=== PATIENT | male | born 1980 | race Two or more races ===

== ENCOUNTER → 2024-06-30 | Outpatient (CLI) | payer MEDICAID, SELFPAY ==
--- NOTE | 2024-06-30 15:00 | XR_ITS ---
Examination: Ultrasound soft tissue right groin TECHNIQUE: Sonographic soft tissue images right groin Exam date and time: June 30, 2024 1513 hours INDICATIONS: Right groin pain beginning 2 months ago, history right groin hernia repair. FINDINGS: Sonographic images right groin demonstrated no cystic or solid mass IMPRESSION: No cystic or solid mass, consider CT scan pelvis without contrast follow-up
== END | disposition home or self-care (01) ==
PROVIDERS: PCP Nurse Practitioner Family; Referring Provider Nurse Practitioner Family; Visit Provider Nurse Practitioner Family
DX: R10.31 Right lower quadrant pain (principal)
CPT/HCPCS: 76882

== ENCOUNTER 2024-10-30 06:45 | Day surgery (SDC) | payer MEDICAID, SELFPAY ==
[2024-10-29 08:58] VITALS: BMI 30.9
[2024-10-29 09:58] LABS: Basophils % (Auto) 1 % (0-2.5); Eosinophils # (Auto) 0.1 Thou/mm3 (0.0-0.5); Eosinophils % (Auto) 2 % (0-10); Hematocrit 41.6 % (41.0-53.0); Hemoglobin 14.5 g/dL (13.5-16.0); Immature Granulocytes % (Auto) 0 % (0-0); Immature Granulocytes Auto 0.01 Thou/mm3 (0.00-0.00); Lymphocytes # (Auto) 1.9 Thou/mm3 (1.0-4.8); Lymphocytes % (Auto) 38 % (10-50); Mean Corpuscular HGB Conc 34.9 g/dl (31.0-37.0); Mean Corpuscular Hemoglobin 30.5 pg (25.0-35.0); Mean Corpuscular Volume 87 fL (80-100); Monocytes # (Auto) 0.4 Thou/mm3 (0.0-0.8); Monocytes % (Auto) 7 % (0-12); Neutrophils # (Auto) 2.6 Thou/mm3 (1.8-7.7); Neutrophils % (Auto) 52 % (37-80); Nucleated Red Blood Cell % 0 /100 WBC (0); Platelet Count 235 Thou/mm3 (140-440); RDW Standard Deviation 40.7 fL (35.1-43.9); Red Blood Count 4.76 Miln/mm3 (4.50-5.90); White Blood Count 5.1 Thou/mm3 (3.8-10.6)
[2024-10-29 10:01] LABS: Anion Gap 8 (7-16); BUN/Creatinine Ratio 25 Ratio (12-20); Blood Urea Nitrogen 25 mg/dL (9-23); Carbon Dioxide 30.4 mMol/L (20.0-31.0); Chloride 105 mMol/L (98-107); Estimated Creatinine Clearance 112.6 mL/min (>60); Glucose 76 mg/dL (74-106); Osmolality,Calculated 288 (275-295); Potassium 4.3 mMol/L (3.4-5.1); Sodium 143 mMol/L (136-145); eGFR > 60 See Note
--- NOTE | 2024-10-29 14:06 | SUR.PREOP ---
Pt notified to come in tomorrow at 0700 for surgery.
[2024-10-30] VITALS (8 sets, daily range): BP systolic 105–130; BP diastolic 65–78; PULSE 52–69; RESP 12–20; TEMP 36.2–36.6; O2SAT 95–100; BMI 30.1
[2024-10-30] MEDS: RINGERS LACTATED 1000 ML 1,000 ML 20 ML IV (07:21)
--- NOTE | 2024-10-30 09:24 | PD.SUROPNT ---
Date of Procedure 10/30/24 Pre Op Diagnosis Incarcerated umbilical hernia Post Op Diagnosis Incarcerated umbilical hernia Procedure Primary repair of incarcerated umbilical hernia Findings An approximately 1 cm umbilical hernia defect with incarcerated omentum and preperitoneal fat Procedure Description Patient brought into the operating room in supine position. After administration of general endotracheal anesthesia, patient's abdomen prepped and draped in standard surgical manner. Local anesthesia was administered. 3 cm semicircular incision was made above the umbilicus and dissection was deepened into soft tissue. The umbilicus was detached from anterior abdominal fascia. The hernia sac was identified and circumferentially dissected out surrounding tissue. The sac was opened, the contents were incarcerated preperitoneal fat and omentum. The hernia sac along with incarcerated preperitoneal fat were excised and the omentum was reduced. The defect was primarily closed with interrupted sutures using 0 Prolene. Umbilicus was reattached into anterior abdominal fascia. Soft tissue reapproximated with interrupted sutures using 2-0 Vicryl and the incision was closed with 4-0 Monocryl in subcuticular fashion. Dermabond applied. Patient tolerated the procedure well. He was extubated, breathing spontaneously and without difficulty and was transferred to postanesthesia care in stable condition. Instruments, needles and sponge counts were reported to be correct x 2. Anesthesia GETA and local Pathology / specimen Other (Hernia sac and contents) Estimated Blood Loss 2 Condition Stable Disposition PACU Surgeon Felicia Siegel MD Surgical Staff Operation Date: 10/30/24 09:00 Case Staff DEALER ACCOUNT MANAGER: Deisi Graham RN First Assistant: Kyung Velásquez
--- NOTE | 2024-10-30 09:29 | SUR.PHASEI ---
pt received from OR in recovery bay 4. pt obtunded, breathing unlabored on oxymask 8l, oral airway in place. v/s stable. pt dressing to abd dermabond x1 cdi. report received from Remy SYED and Reanna BROWN.
--- NOTE | 2024-10-30 10:27 | SUR.PHASEII ---
pt able to tolerate oral fluids without difficulty swallowing or nausea/vomiting.
--- NOTE | 2024-10-30 11:01 | SUR.PHASEI ---
pt meets criteria for discharge. pt dressed sitting in wheelchair awaiting ride (mother) to arrive then will be d/c via wheelchair.
--- NOTE | 2024-10-30 11:07 | SUR.PHASEII ---
pt awake and alert, breathing unlabored on room air. v/s stable. pt dressing to abd dermabond x1 cdi. pt able to ambualte to wheelchair with steady gait. d/c instructions given with mother Kelsie other the phone (child presence) using casing machine operator Jovan [id number] and with pt in room, all questions answered. pt d/c via wheelchair with all belongings.
== END 2024-10-30 11:07 | disposition home or self-care (01) ==
PROVIDERS: PCP Nurse Practitioner Family; Referring Provider Surgery; Visit Provider Surgery
PROC: (CPT 49592; principal; 2024-10-30 08:45)
DX: K42.0 Umbilical hernia with obstruction, without gangrene (principal)
CPT/HCPCS: 49592; 36415; 80048; 85025; A4217; A4649; J0131; J0689; J0690; J1100; J2250; J2405; J2704; J3010; J3490; J7120; A9270

== ENCOUNTER 2025-04-23 08:20 | Day surgery (SDC) | payer MEDICAID, SELFPAY ==
[2025-04-22 10:38] VITALS: BMI 29.9
[2025-04-23] VITALS (11 sets, daily range): BP systolic 110–132; BP diastolic 65–87; PULSE 50–61; RESP 8–24; TEMP 36.6; O2SAT 96–100; BMI 29.9
[2025-04-23] MEDS: MIDAZOLAM INJ 1 MG/ML VIAL 2 ML (ASD USE ONLY) 2 MG IVP (09:27)
[2025-04-23] MEDS: RINGERS LACTATED 500 ML 500 ML 20 ML IV (09:27)
[2025-04-23] MEDS: fentaNYL CIT INJ 50 mCg/ML AMP 2ML (ASD USE ONLY) IVP (09:27)
--- NOTE | 2025-04-23 10:29 | SUR.PHASEII ---
pt is doing well, awake alert and oriented. pt is able to tolerate fluids, able to ambulate, and conversate with staff. awaiting family's arrival to give discharge instructions.
== END 2025-04-23 10:47 | disposition home or self-care (01) ==
PROVIDERS: PCP Nurse Practitioner Family; Referring Provider Internal Medicine Gastroenterology; Visit Provider Internal Medicine Gastroenterology
PROC: 0DBE8ZX Excision of Large Intestine, Via Natural or Artificial Opening Endoscopic, Diagnostic (ICD-10-PCS; CPT 45380; principal; 2025-04-23 13:45)
DX: Z12.11 Encounter for screening for malignant neoplasm of colon (principal); D12.5 Benign neoplasm of sigmoid colon; K57.30 Diverticulosis of large intestine without perforation or abscess without bleeding; R10.84 Generalized abdominal pain
CPT/HCPCS: 45380; A4649; J2250; J3010; J7120